=== PATIENT | female | born 1965 | race Caucasian/White ===

== ENCOUNTER 2017-09-02 13:16 | Outpatient (CLI) | payer BC, OTHER ==
--- NOTE | 2017-09-02 15:35 | CT ---
CT OF THE TEMPORAL BONES: DATE: 09/02/17. COMPARISON: None. HISTORY: Right-sided hearing loss, prior history of tympanostomy tubes. TECHNIQUE: Serial axial CT imaging obtained at 0.63 mm intervals through the temporal bones with coronal reforma tted imaging. FINDINGS: There is polypoid mucosal thickening involving the maxillary sinus inferiorly on the right. The imaged paranasal sinuses appear grossly unremarkable otherwise. Left Temporal Bone: The internal auditory canal, cochlea, vestibule, vestibular aqueduct, and semicircular canals appear within normal limits. The vascular foramina appear unremarkable as well. The course of the facial nerve is unremarkable. The ossicles are intact.. Prussak's space is clear and the scutum is sharp. There is no evidence for osseous dehiscence. Right Temporal Bone: The internal auditory canal, cochlea, vestibule, and vestibular aqueduct appear within normal limits. The course of the facial nerves appears within normal limits as well. The mastoid air cells are well aerated as is the tympanic cavity. Prussak's space is clear and the s cutum is sharp. No evidence for osseous dehiscence. IMPRESSION: Unremarkable CT examination of the temporal bones. POS: [facility]
== END 2017-09-02 13:17 | disposition home or self-care (01) ==
LOC: CT 13:16
PROVIDERS: ATTEND Otolaryngology Plastic Surgery within the Head & Neck
DX: H80.90 Unspecified otosclerosis, unspecified ear (principal)
CPT/HCPCS: 70480